=== PATIENT | male | born 1980 | race Caucasian/White ===

== ENCOUNTER 2016-09-05 12:25 | Emergency (ER) | payer OTHER ==
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
[2016-09-05 14:52] VITALS: BP 173/70; PULSE 63; RESP 16; TEMP 98.1
== END 2016-09-05 14:50 | disposition home or self-care (01) ==
LOC: EC 12:25
DX: S02.642B Fracture of ramus of left mandible, initial encounter for open fracture (principal); M54.2 Cervicalgia; H54.8 Legal blindness, as defined in USA; F20.9 Schizophrenia, unspecified; F41.9 Anxiety disorder, unspecified; F17.200 Nicotine dependence, unspecified, uncomplicated; Y04.0XXA Assault by unarmed brawl or fight, initial encounter; Y93.01 Activity, walking, marching and hiking
CPT/HCPCS: 70450; 70486; 72125; 99284

== ENCOUNTER 2017-10-27 20:26 | Emergency (ER) | payer OTHER ==
[2017-10-27 20:49] VITALS: BP 121/61; PULSE 73; RESP 16; TEMP 97.3
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
--- NOTE | 2017-10-27 21:38 | XR ---
PROCEDURE: XR mandible complete, 5V DATE AND TIME: 10/27/2017 9:24 PM REFERRING PHYSICIAN: Wang Harry CLINICAL INDICATION: PHH, Pain TECHNIQUE: Department protocol. COMPARISON: None FINDINGS: There is no fracture or malalignment. The bilateral mandibular molars are noted to have a horizontal lie. The soft tissues are unremarkable. IMPRESSION: NO DEFINITE ACUTE PROCESS, BUT BILATERAL MANDIBULAR MOLAR HORIZONTAL LIE NOTED.
== END 2017-10-27 22:03 | disposition home or self-care (01) ==
LOC: EC 20:26
DX: R68.84 Jaw pain (principal); R22.0 Localized swelling, mass and lump, head; H54.8 Legal blindness, as defined in USA; F20.9 Schizophrenia, unspecified; F17.200 Nicotine dependence, unspecified, uncomplicated; Z79.899 Other long term (current) drug therapy; Z87.81 Personal history of (healed) traumatic fracture
CPT/HCPCS: 70110; 99283

== ENCOUNTER 2018-02-24 18:20 | Inpatient (IN) | payer MEDICARE, MEDICAID ==
[2018-02-24] MEDS ORDERED: LIDOCAINE 1% INJ 10MG/ML (20 ML MDV) SQ ONE (18:58)
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
[2018-02-24 20:47] LABS: Amphetamine Screen,Urine Not Detected (NotDetected); Barbiturate Screen,Urine Not Detected (NotDetected); Benzodiazepines Screen,Urine Not Detected (NotDetected); Cocaine Screen,Urine Not Detected (NotDetected); Methadone Screen, Urine Not Detected (NotDetected); Opiate Screen,Urine Not Detected (NotDetected); Oxycodone Screen, Urine Not Detected (NotDetected); Phencyclidine Screen,Urine Not Detected (NotDetected); Tricyclic Antidepressant,Urine Not Detected (NotDetected); Urn Cannabinoid Scrn Not Detected (NotDetected)
[2018-02-24] MEDS ORDERED: ACETAMINOPHEN TAB 325 MG TAB PO PRN (23:23)
[2018-02-24] MEDS ORDERED: ZIPRASIDONE 20 MG VIAL IM PRN (23:23)
[2018-02-24] MEDS ORDERED: LORazepam 1 MG TAB PO PRN (23:23)
[2018-02-24] MEDS ORDERED: MAGNESIUM HYDROXIDE 2,400 MG/10 ML CUP PO PRN (23:23)
[2018-02-24] MEDS ORDERED: MAG HYDROX/AL HYDROX/SIMETH 30 ML CUP PO PRN (23:23)
[2018-02-24] MEDS ORDERED: LORazepam 2 MG/ML INJ IM PRN (23:27)
[2018-02-25 00:01] LABS: Appearance,Urine Clear (Clear); Bilirubin,Urine Negative (Negative); Blood,Urine Negative (Negative); Color,Urine Light Yellow; Glucose,Urine (UA) Negative (Negative); Ketones,Urine Negative (Negative); Leukocyte Esterase,Urine Negative (Negative); Nitrite,Urine Negative (Negative); Protein,Urine Negative (Negative); Urobilinogen,Urine <2.0 mg/dL (<2.0)
[2018-02-25] MEDS: OLANZapine 10 MG TAB PO SCH ×2 (00:10→20:29)
--- NOTE | 2018-02-25 07:07 | P.MDCNMH ---
History of Present Illness H&P Date: 02/25/18 Chief Complaint: Homicidal thoughts 37-year-old male with no significant past medical history except for schizophrenia presented to the hospital due to suicidal and homicidal ideation patient was threatening at his mental health clinic to draw people patient was very upset and was voicing urges to hurt other people until the day he also voiced urges to commit suicide. Currently upon interviewing the patient he refuses to talk about the above symptoms information was obtained by reviewing his medical records. But he currently denies any medical concerns he denies any chest pain or trouble breathing denies any coughing fevers or chills denies any abdominal pain Patient denies any use of alcohol, smoking, or drugs. However in his medical records there is mention in of occasional alcohol use Review of Systems Pertinent positives as noted in HPI. All other systems were reviewed and are negative Past Medical History Past Medical History: Eye Disorder, Hyperlipidemia Additional Past Medical History / Comment(s): lung disease, legally blind in right eye History of Any Multi-Drug Resistant Organisms: None Reported Past Surgical History: No Surgical Hx Reported Past Psychological History: Anxiety, Schizophrenia Smoking Status: Current every day smoker Past Alcohol Use History: Occasional Past Drug Use History: Cocaine, Marijuana Medications and Allergies Home Medications Medication Instructions Recorded Confirmed Type OLANZapine [ZyPREXA] 20 mg PO HS 11/18/14 02/24/18 History Albuterol Sulfate [Proair 1 - 2 puff PO RT-Q6H PRN 02/24/18 02/24/18 History Respiclick] Citalopram Hydrobromide [CeleXA] 40 mg PO DAILY 02/24/18 02/24/18 History Allergies Allergy/AdvReac Type Severity Reaction Status Date / Time No Known Allergies Allergy Verified 02/24/18 19:04 Physical Exam Vitals: Vital Signs Temp Pulse Pulse Resp BP BP Pulse Ox 02/25/18 00:11 97.5 F L 84 16 114/69 100 02/24/18 23:55 97.0 F L 82 16 145/69 100 02/24/18 18:37 97.5 F L 96 18 145/64 98 Intake and Output 02/24/18 02/25/18 02/25/18 22:59 06:59 14:59 Other: Weight 74.389 kg 71.532 kg Constitutional: No acute distress, conversant, pleasant Eyes: Anicteric sclerae, moist conjunctiva, no lid-lag Pupils equal round reactive to light ENMT: NC/AT Oropharynx clear, no erythema, or exudates Neck: Supple, FROM, no masses, or JVD No carotid bruits No thyromegaly Lungs: Clear to auscultation Clear to percussion Normal respiratory effort, no accessory muscle use Cardiovascular: Heart regular in rate and rhythm, No murmurs, gallops, or rubs No peripheral edema Abdominal: Soft Nontender, no guarding, rebound or rigidity Abdomen moving with respiration Normoactive bowel sounds No hepatomegaly, No splenomegaly No palpable mass No abdominal wall hernia noted Skin: Normal temperature, tone, texture, turgor No induration No subcutaneous nodules No rash, lesions No ulcers Extremities: No digital cyanosis No clubbing Pedal pulses intact and symmetrical Radial pulses intact and symmetrical No calf tenderness Psychiatric: Alert and oriented to person, place and time Anxious, paranoid Poor judgment Neuro Muscles Strength 5/5 in all 4 extremities Sensation to light touch grossly present throughout Cranial nerves II-XII grossly intact No focal sensory deficits Lymphatics: no palpable cervical or supraclavicular , or inguinal lymph nodes Cranial Nerve Examination - Cranial Nerves Cranial Nerve II- Optic: Intact Cranial Nerve III- Oculomotor: Intact Cranial Nerve IV- Trochlear: Intact Cranial Nerve V- Trigeminal: Intact Cranial Nerve - Abducens: Intact Cranial Nerve VII- Facial: Intact Cranial Nerve VIII- Auditory: Intact Cranial Nerve IX- Glossopharyngeal: Intact Cranial Nerve X- Vagus: Intact Cranial Nerve XI- Accessory: Intact Cranial Nerve XII- Hypoglossal: Intact Assessment and Plan Plan: 37-year-old male with history of schizophrenia presented to the hospital due to homicidal and suicidal ideation medicine was consulted for medical management. Schizophrenia Homicidal and suicidal ideation Suicide precautions Management per psych DVT prophylaxis patient is low risk and ambulatory Thank you for allowing us to participate in the care of this patient. We will follow peripherally. Do not hesitate to contact us with questions. Someone can be reached from the [facility] hospitalist group at all hours of the day at [phone].
[2018-02-25] MEDS: CITALOPRAM HYDROBROMIDE 20 MG TAB PO SCH (07:51)
[2018-02-25 09:57] LABS: ALT 21 U/L (21-72); AST 19 U/L (17-59); Albumin 3.8 g/dL (3.5-5.0); Alkaline Phosphatase 84 U/L (38-126); Anion Gap 8 mmol/L; Blood Urea Nitrogen 11 mg/dL (9-20); Calcium 9.4 mg/dL (8.4-10.2); Carbon Dioxide 26 mmol/L (22-30); Chloride 107 mmol/L (98-107); Cholesterol 213 mg/dL (<200); Glucose 88 mg/dL (74-99); HDL Cholesterol 49 mg/dL (40-60); LDL Cholesterol,Calculated 135 mg/dL (0-99); Potassium 4.5 mmol/L (3.5-5.1); Sodium 141 mmol/L (137-145); Total Bilirubin 0.7 mg/dL (0.2-1.3); Total Protein 6.5 g/dL (6.3-8.2); Triglycerides 146 mg/dL (<150)
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
[2018-02-25 20:15] LABS: Hemoglobin A1C 4.8 % (4.0-6.0)
[2018-02-26] MEDS: CITALOPRAM HYDROBROMIDE 20 MG TAB PO SCH (07:33)
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
[2018-02-26] MEDS: OLANZapine 10 MG TAB PO SCH (20:29)
[2018-02-26] MEDS: ALBUTEROL NEBULIZED 2.5 MG/3 ML INHALATION PRN (21:14)
[2018-02-27] MEDS: CITALOPRAM HYDROBROMIDE 20 MG TAB PO SCH (08:05)
--- NOTE | 2018-02-27 12:26 | P.PN ---
Subjective Progress Note Date: 02/27/18 Principal diagnosis: Schizophrenia undifferentiated Chief Complaint: I am having a mental breakdown] History of Present Illness: [V mental health patient with a history of schizophrenia] Interval history: He is more able to communicate but still depressed and anxious. Very ambivalent. Initial Comments: 37-year-old male patient presents to the emergency department today with suicidal and homicidal ideation. Patient reports that he was on the phone with his psychiatrist and was being asked multiple yes and no questions. Patient stated that they asked the same question "50 times" and made him very angry. Patient states that at that time he started to become very upset and had urges to "punch someone over and over until they ". Patient states he has also been having frequent thoughts of jumping off the bridge into the river and killing himself. Patient stated that if he had to stay and Pray any longer that he would kill himself. He also said that now he only wants to live to maim other humans. When asked where he would go if he wasn't Pray and he said the only option as a "casket". Patient made statements such as "I will cut my throat with a knife" and "I should just cut my balls off and flush them down the toilet, because I don't need those anymore". Patient has a very angry affect throughout history and physical and seems anxious. Patient does report that he had an argument with his girlfriend today and did smash his phone and caused laceration to his right hand. He denies any other injuries. He does admit to drinking 2-22oz beers today. Denies any drug use. States he has been taking his medications as directed. Patient states he is discharged from here he will kill himself, he believes he should be locked in in a "mental hospital" for the rest of his life. Patient denies any headache, neck pain, back pain, chest pain, shortness of breath, dizziness, weakness, abdominal pain, nausea, vomiting, or difficulties with bowel movements or urination. Past Medical History Past Medical History: Eye Disorder, Hyperlipidemia Additional Past Medical History / Comment(s): lung disease, legally blind in right eye History of Any Multi-Drug Resistant Organisms: None Reported Past Surgical History: No Surgical Hx Reported Past Psychological History: Anxiety, Schizophrenia Smoking Status: Current every day smoker Past Alcohol Use History: Occasional Past Drug Use History: Cocaine, Marijuana Musculoskeletal Examination - Abnormal/Involuntary Movements: [none] Strength: [greater than antigravity (greater than/equal to 3/5) in all extremities, weakness:] Muscle Tone: [no impairment] Gait: [grossly normal] Station: [grossly normal] Mental Status Examination - General Appearance: [bizarre, appears stated age, ] Speech/Language: [ rambled, mumbling, hesitant, halting, monotone] Attitude/Behavior: [guarded, irritable, withdrawn, indifferent] Mood: [ depressed 6/10, anxious 5/10, irritable] Affect: [flat, incongruent, blunted constricted] Orientation: [Not time, person, place situation] Thought Content: [wnl Risk Factors: [suicidal (ideations Perception: [hallucinations (auditory today none heard Thought Processes: [concrete, circumstantial, tangential, other] Concentration/Attention Span: [ impaired] [Per observation and interview with the patient] Recent Memory: [ impaired] [1 out of 3 in 3 minutes] Remote Memory: [wnl] [past events, as related history] Intelligence: [below average] [based on history, based on vocabulary, syntax, grammar, and content] Judgement: [fair] [per patient's behavior/history of present illness] Insight: [ fair] [understanding severity of illness/history of present illness] Admitting Diagnosis: [Schizophrenia undifferentiated] Patient Strengths - Housing stability: [x] Able to vocalize needs: [I'm having a mental breakdown and need help] Motivation, determination, readiness for change: [I want to feel better] Patient Limitations: [medication, non-compliance, pathological/unsupported environment, no interests, intellectual impairment, complicated medical illness , legal issues, lack of social supports, other] Initial Plan of Care: [Started on mood stabilizers (Zyprexa 20 mg po qhs)and antidepressants (celexa)integrated jensen milieu therapeutic environment with integration with nursing staff, medical evaluation and daily meetings] Estimated Length of Stay: [4 days] Outpatient follow up with [facility] psychiatrist and ACT team; PCP follow up. Objective - Vital Signs Vital signs: Vital Signs Temp 97.9 F 02/27/18 06:53 Pulse 71 02/27/18 06:53 Resp 18 02/27/18 06:53 BP 108/58 02/27/18 06:53 Pulse Ox 96 02/27/18 06:53 - Labs CBC & Chem 7: 02/25/18 09:19 Assessment and Plan (1) Schizo-affective psychosis Current Visit: Yes Status: Acute Priority: Medium Code(s): F25.9 - SCHIZOAFFECTIVE DISORDER, UNSPECIFIED SNOMED Code(s): 02304241 (2) Suicidal ideation Current Visit: Yes Status: Acute Priority: Medium Code(s): R45.851 - SUICIDAL IDEATIONS SNOMED Code(s): 9245777 Plan: Chief Complaint: I am having a mental breakdown] History of Present Illness: [ mental health patient with a history of schizophrenia] Initial Comments: 37-year-old male patient presents to the emergency department today with suicidal and homicidal ideation. Patient reports that he was on the phone with his psychiatrist and was being asked multiple yes and no questions. Patient stated that they asked the same question "50 times" and made him very angry. Patient states that at that time he started to become very upset and had urges to "punch someone over and over until they ". Patient states he has also been having frequent thoughts of jumping off the bridge into the river and killing himself. Patient stated that if he had to stay and Pray any longer that he would kill himself. He also said that now he only wants to live to maim other humans. When asked where he would go if he wasn't Pray and he said the only option as a "casket". Patient made statements such as "I will cut my throat with a knife" and "I should just cut my balls off and flush them down the toilet, because I don't need those anymore". Patient has a very angry affect throughout history and physical and seems anxious. Patient does report that he had an argument with his girlfriend today and did smash his phone and caused laceration to his right hand. He denies any other injuries. He does admit to drinking 2-22oz beers today. Denies any drug use. States he has been taking his medications as directed. Patient states he is discharged from here he will kill himself, he believes he should be locked in in a "mental hospital" for the rest of his life. Patient denies any headache, neck pain, back pain, chest pain, shortness of breath, dizziness, weakness, abdominal pain, nausea, vomiting, or difficulties with bowel movements or urination. Past Medical History Past Medical History: Eye Disorder, Hyperlipidemia Additional Past Medical History / Comment(s): lung disease, legally blind in right eye History of Any Multi-Drug Resistant Organisms: None Reported Past Surgical History: No Surgical Hx Reported Past Psychological History: Anxiety, Schizophrenia Smoking Status: Current every day smoker Past Alcohol Use History: Occasional Past Drug Use History: Cocaine, Marijuana Musculoskeletal Examination - Abnormal/Involuntary Movements: [none] Strength: [greater than antigravity (greater than/equal to 3/5) in all extremities, weakness:] Muscle Tone: [no impairment] Gait: [grossly normal] Station: [grossly normal] Mental Status Examination - General Appearance: [disheveled, bizarre, appears stated age, ] Speech/Language: [ slow, rambled, mumbling, hesitant, halting, monotone] Attitude/Behavior: [guarded, irritable, withdrawn, indifferent] Mood: [ depressed, anxious, irritable, angry, fearful, hopelessness] Affect: [flat, incongruent, labile, blunted constricted] Orientation: [Not time, person, place situation] Thought Content: [wnl Risk Factors: [suicidal (ideations, plan), and/or Homicidal (ideations, plan)] Perception: [hallucinations (auditory, Thought Processes: [concrete, circumstantial, tangential, other] Concentration/Attention Span: [ impaired] [Per observation and interview with the patient] Recent Memory: [ impaired] [0 out of 3 in 3 minutes] Remote Memory: [wnl] [past events, as related history] Intelligence: [below average] [based on history, based on vocabulary, syntax, grammar, and content] Judgement: [poor] [per patient's behavior/history of present illness] Insight: [ poor] [understanding severity of illness/history of present illness] Admitting Diagnosis: [Schizophrenia undifferentiated] Patient Strengths - Housing stability: [x] Able to vocalize needs: [I'm having a mental breakdown and need help] Motivation, determination, readiness for change: [I want to feel better] Other: [] Patient Limitations: [medication, non-compliance, pathological/unsupported environment, no interests, intellectual impairment, complicated medical illness , legal issues, lack of social supports, other] Initial Plan of Care: [] Estimated Length of Stay: [] Initial Discharge Plan: [home, [place] [facility], referred to therapist, ] Prognosis: [good, fair, guarded] Justification for Inpatient Hospitalization - [Hallucinations, delusions, agitation, anxiety, depression resulting in significant loss of functioning.] [Dangerous to self, others, or property with need for controlled environment.] [Emotional or behavioral conditions and complications requiring 24 hour medical and nursing care.] [Need for special drug therapy, or other therapeutic program requiring continuous hospitalization.] [Failure of social or occupational functioning.] [Inability to meet basic life and health needs.] [Legally mandated admission.] [Patient's occupation presents danger to public safety if they continue to use drugs or alcohol.] [Biomedical conditions and complications requiring 24 hour medical and nursing care.] Time with Patient: Less than 30
[2018-02-27] MEDS: OLANZapine 10 MG TAB PO SCH (20:52)
[2018-02-28] MEDS: CITALOPRAM HYDROBROMIDE 20 MG TAB PO SCH (08:51)
--- NOTE | 2018-02-28 16:12 | P.PN ---
Progress Note - Text Progress Note Date: 02/28/18 IDENTIFICATION DATA: 37-year-old male patient with history of schizophrenia admitted due to impulsivity, poor insight/judgement, illogical thought process, suicidal, homicidal ideation after having had an argument with his girlfriend . INTERVAL HISTORY: Behavioral problems Patient stated he became upset and frustrated while completing questionnaires on a pod for his out patient appointments. He stated he did not answer his girlfriends phone call during the process of completing his questionnaire. He reports his day got ruined and he got into an argument with his girlfriend. He reports to have broke the phone given to him by his girlfriend. He reports to have injured his hand when he broke the phone. He showed the sutures that were placed on his right palm. He currently reports feeling calm. He reports feeling safe to go back home. He claims he is missing his work. 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 He claims his girl friend is very supportive of him. He reports to have cut down on his alcohol use ever since he met his new girlfriend a year ago. Mood disorder: He denies current symptoms of depression. He reports good sleep and appetite. He attends all his groups,. He is complaint with all his prescribed medications. No side effects reported. He denies current suicidal or homicidal ideations. Denies mood swings OR RACING THOUGHTS Psychosis He denies auditory or visual hallucinations. He denies paranoia. MENTAL STATUS EXAMINATION: 37- year-old male. He appeared his stated age in fair grooming and hygiene. He is dressed casually. No abnormal movements noted. The patient is alert and oriented 4 and in no apparent distress. His speech and thought process are linear and goal . Mood is reported as good and affect is APPROPRIATE. Denies suicidal or homicidal ideation. Denies auditory or visual hallucaintions. Not delusional. insight and judgment are improving. ASSESSMENT AND PLAN: Continue current medications Continue all precuations Monitor for symptoms
[2018-02-28] MEDS: OLANZapine 10 MG TAB PO SCH (20:56)
[2018-03-01] MEDS: CITALOPRAM HYDROBROMIDE 20 MG TAB PO SCH (08:16)
--- NOTE | 2018-03-01 16:05 | P.PN ---
Progress Note - Text Progress Note Date: 03/01/18 IDENTIFICATION DATA : 37-year-old male patient with history of schizophrenia admitted due to impulsivity, poor insight/judgement, illogical thought process, suicidal, homicidal ideation after having had an argument with his girlfriend . INTERVAL HISTORY: Patient was sleeping in his room. States he is little tired today. He claims to have slept well yesterday. He reports good appetite. He denies feeling hopeless or worthless. He reports to have talked to his girl friend over the phone and says both of them are in good terms now. He feels safe to back home. He reports being compliant with his prescribed medications. No side effects reported. No behavioral problems reported. MENTAL STATUS EXAMINATION: The patient is alert and oriented 4 and in no apparent distress. he appears in marginal grooming and hygiene.. Mood is "tired" and affect is constricted. Denies auditory and visual hallucinations. thought processes is linear and goal directed. thought content is negative for suicidal or homicidal ideation. insight and judgment are limited. ASSESSMENT AND PLAN: Continue current medications Continue precuations Monitor for symptoms
[2018-03-01] MEDS: OLANZapine 10 MG TAB PO SCH (20:16)
[2018-03-01] MEDS: ALBUTEROL NEBULIZED 2.5 MG/3 ML INHALATION PRN (21:15)
[2018-03-02] MEDS: CITALOPRAM HYDROBROMIDE 20 MG TAB PO SCH (07:58)
--- NOTE | 2018-03-02 12:56 | P.PN ---
Subjective Progress Note Date: 03/02/18 Principal diagnosis: Schizophrenia undifferentiated Chief Complaint: I was having a mental breakdown which is getting better] History of Present Illness: [mental health patient with a history of schizophrenia] Interval history: He is more able to communicate but still depressed and anxious. Very ambivalent but wants to stop being impulsive Initial Comments: 37-year-old male patient presents to the emergency department today with suicidal and homicidal ideation. Patient reports that he was on the phone with his psychiatrist and was being asked multiple yes and no questions. Patient stated that they asked the same question "50 times" and made him very angry. Patient states that at that time he started to become very upset and had urges to "punch someone over and over until they ". Patient states he has also been having frequent thoughts of jumping off the bridge into the river and killing himself. Patient stated that if he had to stay and [facility] any longer that he would kill himself. He also said that now he only wants to live to maim other humans. When asked where he would go if he wasn't [facility] and he said the only option as a "casket". Patient made statements such as "I will cut my throat with a knife" and "I should just cut my balls off and flush them down the toilet, because I don't need those anymore". Patient has a very angry affect throughout history and physical and seems anxious. Patient does report that he had an argument with his girlfriend today and did smash his phone and caused laceration to his right hand. He denies any other injuries. He does admit to drinking 2-22oz beers today. Denies any drug use. States he has been taking his medications as directed. Patient states he is discharged from here he will kill himself, he believes he should be locked in in a "mental hospital" for the rest of his life. Patient denies any headache, neck pain, back pain, chest pain, shortness of breath, dizziness, weakness, abdominal pain, nausea, vomiting, or difficulties with bowel movements or urination. Past Medical History Past Medical History: Eye Disorder, Hyperlipidemia Additional Past Medical History / Comment(s): lung disease, legally blind in right eye History of Any Multi-Drug Resistant Organisms: None Reported Past Surgical History: No Surgical Hx Reported Past Psychological History: Anxiety, Schizophrenia Smoking Status: Current every day smoker Past Alcohol Use History: Occasional Past Drug Use History: Cocaine, Marijuana Mental Status Examination - General Appearance: [bizarre, appears stated age, ] Speech/Language: [ rambled, mumbling, hesitant, halting, monotone] Attitude/Behavior: [guarded, irritable, withdrawn, indifferent] Mood: [ depressed 6/10, anxious 5/10, irritable] Affect: [flat, incongruent, blunted constricted] Orientation: [Not time, person, place situation] Thought Content: [wnl Risk Factors: [suicidal (ideations have decreased Perception: [hallucinations (none auditory today none heard Thought Processes: [concrete, circumstantial, tangential, other] Concentration/Attention Span: [ impaired] [Per observation and interview with the patient] Recent Memory: [ impaired] [2 out of 3 in 3 minutes] Remote Memory: [wnl] [past events, as related history] Intelligence: [below average] [based on history, based on vocabulary, syntax, grammar, and content] Judgement: [fair] [per patient's behavior/history of present illness] Insight: [ fair] [understanding severity of illness/history of present illness] Admitting Diagnosis: [Schizophrenia undifferentiated] Patient Strengths - Housing stability: [x] Able to vocalize needs: [I'm having a mental breakdown and need help] Motivation, determination, readiness for change: [I want to feel better] Patient Limitations: [medication, non-compliance, pathological/unsupported environment, no interests, intellectual impairment, complicated medical illness , legal issues, lack of social supports, other] Initial Plan of Care: [Started on mood stabilizers (Zyprexa 20 mg po qhs)and antidepressants (celexa)integrated j[facility] milieu therapeutic environment with integration with nursing staff, medical evaluation and daily meetings add Revia 50 mg for alcohol and tobacco use Estimated Length of Stay: [1 days] Outpatient follow up with [facility] psychiatrist and ACT team; PCP follow up. Objective - Vital Signs Vital signs: Vital Signs Temp 98.1 F 03/02/18 06:53 Pulse 50 L 03/02/18 06:53 Resp 14 03/02/18 06:53 BP 117/57 03/02/18 06:53 Pulse Ox 96 02/27/18 06:53 - Labs CBC & Chem 7: 02/25/18 09:19 Assessment and Plan (1) Schizo-affective psychosis Current Visit: Yes Status: Acute Priority: Medium Code(s): F25.9 - SCHIZOAFFECTIVE DISORDER, UNSPECIFIED SNOMED Code(s): 49058863 (2) Suicidal ideation Current Visit: Yes Status: Acute Priority: Medium Code(s): R45.851 - SUICIDAL IDEATIONS SNOMED Code(s): 6041236
[2018-03-02] MEDS ORDERED: NALTREXONE HCL 50 MG TAB PO SCH (20:00)
[2018-03-02] MEDS: OLANZapine 10 MG TAB PO SCH (20:17)
[2018-03-03 06:51] VITALS: BP 114/58; PULSE 53; RESP 16; TEMP 97.6
[2018-03-03] MEDS: CITALOPRAM HYDROBROMIDE 20 MG TAB PO SCH (08:32)
--- NOTE | 2018-03-03 10:18 | P.DS ---
Providers Date of admission: 02/24/18 23:05 Expected date of discharge: 03/03/18 Attending physician: Montez Teague DO Consults: 02/24/18 23:23 Consult Physician Routine Consulting Provider: Arash Physician Consult Reason/Comments: H&P for mental health admission Do you want consulting provider notified?: Yes Primary care physician: [facility] - Discharge Diagnosis(es) (1) Schizo-affective psychosis Current Visit: Yes Status: Acute Priority: Low (2) Suicidal ideation Current Visit: Yes Status: Acute Priority: Low Hospital Course: Chief Complaint: I am having a mental breakdown] History of Present Illness: mcc chronic mental illness of thought Past Medical History Past Medical History: Eye Disorder, Hyperlipidemia Additional Past Medical History / Comment(s): lung disease, legally blind in right eye History of Any Multi-Drug Resistant Organisms: None Reported Past Surgical History: No Surgical Hx Reported Past Psychological History: Anxiety, Schizophrenia Smoking Status: Current every day smoker Past Alcohol Use History: Occasional Past Drug Use History: Cocaine, Marijuana Mental Status Examination - General Appearance: [ appears stated age, ] Speech/Language: [ slow,spontaneous] Attitude/Behavior: [guarded Mood: [ Less depressed reactive affect] Affect: [Reactive and insightful Orientation: time, person, place situation] Thought Content: [wnl Risk Factors: [No suicidal homicidal ideation today Perception: [No hallucinations (auditory, Thought Processes: [, circumstantial, tangential, other] Concentration/Attention Span: [intact [Per observation and interview with the patient] Recent Memory: [ intact [3 out of 3 in 3 minutes] Remote Memory: [wnl] [past events, as related history] Intelligence: [below average] [based on history, based on vocabulary, syntax, grammar, and content] Judgement: [fair] [per patient's behavior/history of present illness] Insight: [fair] [understanding severity of illness/history of present illness] Plan of Care: [Started on mood stabilizers (Zyprexa 20 mg po qhs)and antidepressants (celexa)integrated j[facility] milieu therapeutic environment with integration with nursing staff, medical evaluation and daily meetings add Revia 50 mg for alcohol and tobacco use Patient Condition at Discharge: Stable Plan - Discharge Summary Discharge Rx Participant: Yes New Discharge Prescriptions: New Naltrexone HCl [Revia] 50 mg PO Q24H 30 Days #30 tab OLANZapine [ZyPREXA] 20 mg PO HS 30 Days #60 tab Continue Albuterol Sulfate [Proair Respiclick] 1 - 2 puff PO RT-Q6H PRN PRN Reason: Shortness Of Breath Citalopram Hydrobromide [CeleXA] 40 mg PO DAILY 30 Days #30 tablet Discontinued OLANZapine [ZyPREXA] 20 mg PO HS Discharge Medication List Albuterol Sulfate [Proair Respiclick] 1 - 2 puff PO RT-Q6H PRN 02/24/18 [History ] Citalopram Hydrobromide [CeleXA] 40 mg PO DAILY 30 Days #30 tablet 03/03/18 [Rx] Naltrexone HCl [Revia] 50 mg PO Q24H 30 Days #30 tab 03/03/18 [Rx] OLANZapine [ZyPREXA] 20 mg PO HS 30 Days #60 tab 03/03/18 [Rx] Follow up Appointment(s)/Referral(s): [facility] [Primary Care Provider] - 1-2 days Discharge Disposition: HOME SELF-CARE
== END 2018-03-03 12:19 | disposition home or self-care (01) | DRG 885 ==
LOC: EC 18:20 → 3MHU 23:05
PROVIDERS: ADMIT Psychiatry & Neurology Psychiatry; ATTEND Psychiatry & Neurology Psychiatry
DX: F20.3 Undifferentiated schizophrenia (principal); R45.851 Suicidal ideations; E78.5 Hyperlipidemia, unspecified; F17.200 Nicotine dependence, unspecified, uncomplicated; F39 Unspecified mood [affective] disorder; F41.9 Anxiety disorder, unspecified; H54.8 Legal blindness, as defined in USA; R45.850 Homicidal ideations; S61.411A Laceration without foreign body of right hand, initial encounter; Z91.19 Patient's noncompliance with other medical treatment and regimen; F79 Unspecified intellectual disabilities; J44.9 Chronic obstructive pulmonary disease, unspecified
CPT/HCPCS: 12001; 80053; 80061; 80306; 81003; 82075; 83036; 84443; 94640; 99285

== ENCOUNTER 2018-06-12 13:43 | Emergency (ER) | payer MEDICARE, OTHER ==
[2018-06-12 13:48] VITALS: RESP 20; TEMP 98
--- NOTE | 2018-06-12 14:23 | ED ---
General Adult HPI - General Chief complaint: Wound/Laceration Stated complaint: Lac on rt hand Source: patient, RN notes reviewed Mode of arrival: ambulatory Limitations: no limitations - History of Present Illness Initial comments: Patient is a 38-year-old male who presents emergency department with complaint of right palm laceration that happened last night around 9 PM. He reports he cut his hand on a broken bowl. He reports that he is up to date on his tetanus vaccination. Patient denies any recent fever, chills, shortness of breath, chest pain, back pain, abdominal pain, nausea or vomiting, numbness or tingling , headaches or visual changes, or any other complaints. - Related Data Home Medications Medication Instructions Recorded Confirmed Albuterol Sulfate [Proair 1 - 2 puff PO RT-Q6H PRN 02/24/18 02/24/18 Respiclick] Previous Rx's Medication Instructions Recorded Citalopram Hydrobromide [CeleXA] 40 mg PO DAILY 30 Days #30 tablet 03/03/18 Naltrexone HCl [Revia] 50 mg PO Q24H 30 Days #30 tab 03/03/18 OLANZapine [ZyPREXA] 20 mg PO HS 30 Days #60 tab 03/03/18 Bacitracin Oint 1 applic TOPICAL TID 7 Days #1 tube 06/12/18 Allergies Allergy/AdvReac Type Severity Reaction Status Date / Time No Known Allergies Allergy Verified 06/12/18 13:48 Review of Systems ROS Statement: Those systems with pertinent positive or pertinent negative responses have been documented in the HPI. ROS Other: All systems not noted in ROS Statement are negative. Past Medical History Past Medical History: Eye Disorder, Hyperlipidemia Additional Past Medical History / Comment(s): lung disease, legally blind in right eye History of Any Multi-Drug Resistant Organisms: None Reported Past Surgical History: No Surgical Hx Reported Past Psychological History: Anxiety, Schizophrenia Smoking Status: Current every day smoker Past Alcohol Use History: Occasional Past Drug Use History: Cocaine, Marijuana General Exam Limitations: no limitations General appearance: alert, in no apparent distress Head exam: Present: atraumatic, normocephalic Respiratory exam: Present: normal lung sounds bilaterally Cardiovascular Exam: Present: regular rate, normal heart sounds Extremities exam: Present: full ROM, normal capillary refill, other (Right palm with 3 cm laceration. Able to maintain finger extension against resistance.) Neurological exam: Present: alert, oriented X3 Psychiatric exam: Present: normal affect, normal mood Skin exam: Present: warm, dry Course Vital Signs 06/12/18 06/12/18 13:46 14:41 Temperature 98 F Pulse Rate 105 H 65 Respiratory 20 20 Rate Blood Pressure 115/69 109/54 O2 Sat by Pulse 99 96 Oximetry Medical Decision Making - Medical Decision Making The wound has been open for 17 hours. It will not be sutured. It was cleaned here and Bacitracin applied; no bleeding. Will prescribe Bacitracin. Case discussed in detail with attending physician Dr. Orona. Disposition Clinical Impression: Laceration Disposition: HOME SELF-CARE Condition: Good Instructions: Laceration (ED) Additional Instructions: Follow-up with your PCP in 1 to 2 days. Please use antibiotic ointment as prescribed. Return to the emergency department if any redness, swelling, drainage, or fevers as these could indicate an infection. Return to the emergency department for any other concerns. Prescriptions: Bacitracin Oint 1 applic TOPICAL TID 7 Days #1 tube Is patient prescribed a controlled substance at d/c from ED?: No Referrals: [facility] [Primary Care Provider] - 1-2 days Time of Disposition: 15:13
[2018-06-12 14:42] VITALS: BP 109/54; PULSE 65
== END 2018-06-12 15:19 | disposition home or self-care (01) ==
LOC: EC 13:43
DX: S61.411A Laceration without foreign body of right hand, initial encounter (principal); F17.200 Nicotine dependence, unspecified, uncomplicated; W26.8XXA Contact with other sharp object(s), not elsewhere classified, initial encounter
CPT/HCPCS: 99282

== ENCOUNTER → 2018-07-31 | Outpatient (CLI) | payer MEDICARE, OTHER ==
--- NOTE | 2018-07-31 12:55 | CT ---
EXAMINATION TYPE: CT sinus wo con DATE OF EXAM: 07/31/2018 COMPARISON: None HISTORY: Sinus problems x years. CT DLP: 663 mGycm. Automated Exposure Control for Dose Reduction was Utilized. TECHNIQUE: CT scan of the sinuses is performed without contrast, axial images are obtained, coronal r eformatted images are also reviewed. FINDINGS: Frontal sinus and sphenoid sinuses have a normal appearance. There is moderate mucosal thickening involving the ethmoid air cells and mild mucosal thickening invo lving the maxillary sinuses.. The ostiomeatal complex is occluded bilaterally. There is a large conc eisenberg bullosa on the left. Nasal septal deviation noted. Intraorbital and intracranial structures are symmetric. Visualized nasopharynx and oropharynx symmetr ic. Visualized portion of mastoid air cells show no abnormal opacification. The globes are intact bi laterally. IMPRESSION: 1. Findings compatible with chronic sinusitis with most marked findings involving the ethmoid air camila ls greater on the left. There is bilateral occlusion of the ostiomeatal complex..
== END | disposition home or self-care (01) ==
LOC: RADCTMAIN 12:11
PROVIDERS: ATTEND Otolaryngology
DX: J32.9 Chronic sinusitis, unspecified (principal); J34.89 Other specified disorders of nose and nasal sinuses
CPT/HCPCS: 70486

== ENCOUNTER 2018-10-07 07:43 | Day surgery (SDC) | payer MEDICARE, OTHER ==
[~2018-10-07 07:43] MED LIST: FAMOTIDINE 20 MG/2 ML VIAL IV ONE; Pre Op ABX Message 1 EACH MISC MISCELLANE ONE
[2018-10-07] MEDS ORDERED: LIDOCAINE 1% 20 ML VIAL (10MG/ML) FOR IV START INTRADERMA PRN (08:18)
[2018-10-07] MEDS ORDERED: ONDANSETRON 4 MG/2 ML VIAL IVP PRN (08:18)
[2018-10-07] MEDS ORDERED: HYDROmorphone 0.5 MG/0.5 ML SYRINGE IVP PRN (08:18)
[2018-10-07] MEDS ORDERED: LACTATED RINGERS 1,000 ML IV SCH (08:18)
[2018-10-07] MEDS ORDERED: KETOROLAC 30 MG/ML 1 ML VIAL IVP SCH (08:18)
[2018-10-07] MEDS ORDERED: ONDANSETRON IVPB ONE (08:30)
[2018-10-07] MEDS ORDERED: SODIUM CHLORIDE 0.9% IVPB ONE (08:30)
[2018-10-07] MEDS: OXYMETAZOLINE 0.05% NASL SPRAY 1 SPRAY BOTTLE NASAL ONE ×5 (08:30→08:55)
[2018-10-07] MEDS ORDERED: DEXAMETHASONE SOD PHOSPHATE 20 MG in DEXTROSE 5% IN WATER 50 ML IV ONE ×2 (08:30)
[2018-10-07] MEDS ORDERED: ONDANSETRON 8 MG in SODIUM CHLORIDE 0.9% 50 ML IVPB ONE (08:30)
[2018-10-07] MEDS ORDERED: LACTATED RINGERS 1,000 ML IV ONE (08:35)
[2018-10-07] MEDS ORDERED: DEXAMETHASONE SOD PHOSPHATE 10 MG/ML 1 ML VIAL IV ONE (08:47)
[2018-10-07] MEDS ORDERED: LIDOCAINE 1% INJ 10MG/ML (20 ML MDV) ONE (09:39)
[2018-10-07] MEDS ORDERED: PROPOFOL 10 MG/ML 20 ML VIAL IV ONE (09:39)
[2018-10-07] MEDS ORDERED: SUCCINYLCHOLINE CHLORIDE 100 MG/5 ML SYR IV ONE (09:39)
[2018-10-07] MEDS ORDERED: fentaNYL (PF) 50 MCG/ML 2 ML AMP ONE (09:39)
[2018-10-07] MEDS ORDERED: DEXAMETHASONE SOD PHOS (MDV) 100 MG/10 ML VIAL ONE (09:39)
[2018-10-07] MEDS ORDERED: MIDAZOLAM 2 MG/2 ML VIAL ONE (09:39)
[2018-10-07] MEDS ORDERED: LIDOCAINE 1%-EPI 1:100,000 20 ML VIAL SUBMUCOSAL ONE ×2 (09:57)
[2018-10-07] MEDS ORDERED: BACITRACIN 500 UNIT/GM OINT 28.4 GM TUBE TOPICAL ONE ×2 (10:08→10:27)
[2018-10-07 11:17] VITALS: TEMP 97
[2018-10-07 11:18] VITALS: RESP 16
[2018-10-07] MEDS ORDERED: HYDROcodone/APAP 7.5-325MG 1 EACH TAB PO ONE (12:04)
[2018-10-07 12:29] VITALS: BP 129/76; PULSE 84
--- NOTE | 2018-10-13 05:47 | OP ---
OPERATIVE REPORT DATE OF SURGERY: 10/07/2018. PREOPERATIVE DIAGNOSES: 1. Deviated nasal septum. 2. Inferior turbinate hypertrophy. 3. Chronic sinusitis. POSTOPERATIVE DIAGNOSES: 1. Deviated nasal septum. 2. Inferior turbinate hypertrophy. 3. Chronic sinusitis. PROCEDURE: 1. Septoplasty. 2. Outfracture and submucous resection of the inferior turbinates. 3. Bilateral endoscopic sinus surgery including bilateral maxillary antrostomy with removal of tissue from maxillary sinus, bilateral carlton bullectomy, bilateral anterior and posterior ethmoidectomy. ANESTHESIA: General. ESTIMATED BLOOD LOSS: Minimal, less than 10 mL. COMPLICATIONS: None. INDICATIONS: This is a 38-year-old white male with chronic nasal airway obstruction and congestion as well as recurrent sinusitis with CT findings of chronic sinusitis. FINDINGS: Nasal septum deviated to the right. Inferior turbinates hypertrophy bilaterally. Maxillary ostia were obstructed bilaterally. There were bilateral carlton bullosa cells and the ethmoid sinuses had diffuse mild edema and polypoid change throughout. DESCRIPTION OF PROCEDURE: The patient brought up to the operative suite and placed supine position. Patient underwent general anesthesia with oral endotracheal intubation without difficulty. The patient was prepped and draped in usual aseptic fashion. in the operating field for monitoring throughout the case and CT scan was on the computer screen for review throughout the case also. One percent lidocaine with 1:100,000 epinephrine was infused submucosally into the bilateral nasal septal wall as well as lateral nasal wall and anterior tips of middle turbinates bilaterally. While this was taking the vasoconstrictive effect, the inferior turbinates were infractured with a Boies elevator. Partial submucous resection of inferior turbinates was performed using Coblation wand, ablating a portion of the submucosal soft tissue and then the inferior turbinates were outfractured with a Ivydale elevator. A left hemitransfixion incision was made and the mucoperichondrial mucoperiosteal flap in the left elevated. Bony cartilaginous junction was disarticulated. A mucoperiosteal flap on the right was elevated. Bony nasal septal deformities were removed with Aleah forceps. The inferior cartilaginous strip was removed removed leaving a full 1.5 cm caudal strut. Checking intranasally this corrected the nasal septal deformity and the hemitransfixion incision was closed with a running 4-0 chromic suture. A full zero degree endoscopic examination performed bilaterally. Beginning on the left, the lateral 1/2 of the middle turbinate was removed with microdebrider thus performing the carlton bullectomy. The maxillary ostium was with a ballpoint probe and infundibulotomy was performed followed by uncinectomy. The maxillary ostium was at the anterior and posterior fontanelle taking care anteriorly not to injure the lacrimal bone. The maxillary sinus had small polyps that were removed with the giraffe forceps and curved suctioning. Anterior posterior ethmoidectomy was then performed from anterior posterior level of the skull base with the anterior ethmoid air cells cleaned from posterior anterior. Nasofrontal duct was noted to be patent. Proceeding on the right, the procedure was followed as they had been on the left including carlton bullectomy, infundibulotomy, uncinectomy maxillary antrostomy with removal of tissue in maxillary sinus, anterior to posterior ethmoidectomy. Once this was completed, a combination of standard and firm NasoPore nasal dressings were closed placed in the middle under direct visualization. Bilateral Ocasio airway splints coated with bacitracin ointment were placed in nasal cavities and sutured transseptally with 4-0 nylon suture. The patient was suctioned in orogastric fashion and was allowed to emerge from general anesthesia having tolerated procedure well, was extubated in the operating suite and transferred to postoperative recovery area in satisfactory condition. MMODL / IJN: [id number] /
== END 2018-10-07 12:46 | disposition home or self-care (01) ==
LOC: OR 07:43
PROVIDERS: ATTEND Otolaryngology
DX: J32.8 Other chronic sinusitis (principal); J34.2 Deviated nasal septum; J34.3 Hypertrophy of nasal turbinates; F32.9 Major depressive disorder, single episode, unspecified; F17.210 Nicotine dependence, cigarettes, uncomplicated; F41.9 Anxiety disorder, unspecified; Z79.899 Other long term (current) drug therapy
CPT/HCPCS: 88305; 88300; 30520; 30140; 31267; 31255; 31240; J2250; J1100 ×2; J2405; J0690; J2001; J3010; J0330; J2704

== ENCOUNTER 2019-02-10 12:19 | Emergency (ER) | payer MEDICARE, OTHER ==
[2019-02-10 12:41] VITALS: RESP 18
--- NOTE | 2019-02-10 13:17 | ED ---
General Adult HPI - General Source: patient, RN notes reviewed Mode of arrival: ambulatory Limitations: no limitations <Sanjay Luna - Last Filed: 02/10/19 17:10> <Sanjay Gutierrez - Last Filed: 02/10/19 18:32> - General Chief complaint: Psychiatric Symptoms Stated complaint: Anxiety, Mental Health Time Seen by Provider: 02/10/19 12:40 - History of Present Illness Initial comments: This is a 38-year-old male who presents emergency Department stating that he has not had any of his schizophrenic medications for 4 months. Patient states more recently he is becoming much more agitated and anxious and is feeling that he needs his medications filled. Patient states he didn't get them filled last time because he missed an appointment. Patient states he feels that his mind is more cloudy than it normally is. Patient denies any suicidal or homicidal ideations. Patient denies any hallucinations. Patient denies any auditory hallucinations. Patient states he does not believe anyone is after him and has no thoughts of anyone trying to harm him. Patient denies any physical complaints today. (Sanjay Luna) - Related Data Home Medications Medication Instructions Recorded Confirmed Cholecalciferol [Vitamin D3 (25 5,000 unit PO DAILY 02/10/19 02/10/19 Mcg = 1000 Iu)] Naltrexone HCl [Revia] 50 mg PO QAM 02/10/19 02/10/19 Previous Rx's Medication Instructions Recorded Citalopram Hydrobromide [CeleXA] 40 mg PO DAILY 30 Days #30 tablet 03/03/18 OLANZapine [ZyPREXA] 20 mg PO HS 30 Days #60 tab 03/03/18 Allergies Allergy/AdvReac Type Severity Reaction Status Date / Time No Known Allergies Allergy Verified 02/10/19 12:56 Review of Systems ROS Other: All systems not noted in ROS Statement are negative. <Sanjay Luna - Last Filed: 02/10/19 17:10> ROS Other: All systems not noted in ROS Statement are negative. <Sanjay Gutierrez - Last Filed: 02/10/19 18:32> ROS Statement: Those systems with pertinent positive or pertinent negative responses have been documented in the HPI. Past Medical History Past Medical History: Eye Disorder, Hyperlipidemia Additional Past Medical History / Comment(s): lung disease, legally blind in right eye History of Any Multi-Drug Resistant Organisms: None Reported Past Surgical History: No Surgical Hx Reported Past Psychological History: Anxiety, Schizophrenia Smoking Status: Current every day smoker Past Alcohol Use History: Occasional Past Drug Use History: Cocaine, Marijuana <Sanjay Luna - Last Filed: 02/10/19 17:10> General Exam Limitations: no limitations <Sanjay Luna - Last Filed: 02/10/19 17:10> - General Exam Comments Initial Comments: GENERAL: Patient is well-developed and well-nourished. Patient is nontoxic and well- hydrated and is in no acute distress. ENT: Neck is soft and supple. No significant lymphadenopathy is noted. Neck has full range of motion without eliciting any pain. EYES: The sclera were anicteric and conjunctiva were pink and moist. Extraocular movements were intact and pupils were equal round and reactive to light. Eyelids were unremarkable. PULMONARY: Unlabored respirations. Good breath sounds bilaterally. No audible rales rhonchi or wheezing was noted. CARDIOVASCULAR: There is a regular rate and rhythm without any murmurs gallops or rubs. ABDOMEN: Soft and nontender with normal bowel sounds. No palpable organomegaly was noted. There is no palpable pulsatile mass. SKIN: Skin is clear with no lesions or rashes and otherwise unremarkable. NEUROLOGIC: Patient is alert and oriented x3. Cranial nerves II through XII are grossly intact. Motor and sensory are also intact. Normal speech, volume and content. Symmetrical smile. MUSCULOSKELETAL: Normal extremities with adequate strength and full range of motion. No lower extremity swelling or edema. No calf tenderness. LYMPHATICS: No significant lymphadenopathy is noted PSYCHIATRIC: Patient denies any suicidal or homicidal ideations. Patient does seem mildly anxious. (Sanjay Luna) Course Vital Signs 02/10/19 02/10/19 12:38 18:13 Temperature 97.9 F 97.8 F Pulse Rate 89 54 L Respiratory 18 18 Rate Blood Pressure 120/74 123/71 O2 Sat by Pulse 98 97 Oximetry EKG Findings - EKG Comments: EKG Findings:: EKG shows sinus bradycardia rate of 58, DC 136, QRS 70, QTc 424 <Sanjay Gutierrez - Last Filed: 02/10/19 18:32> Medical Decision Making <Sanjay Luna - Last Filed: 02/10/19 17:10> <Sanjay Gutierrez - Last Filed: 02/10/19 18:32> - Medical Decision Making Dr. Gutierrez will be taking over the care of this patient at 5 PM (Sanjay Luna) 38 male who was seen and evaluated with psychiatry in the ER not currently homicidal or suicidal patient can be discharged home (Sanjay Gutierrez) Disposition <Sanjay Luna - Last Filed: 02/10/19 17:10> Is patient prescribed a controlled substance at d/c from ED?: No <Sanjay Gutierrez - Last Filed: 02/10/19 18:32> Clinical Impression: Schizo-affective psychosis Disposition: HOME SELF-CARE Condition: Fair Instructions (If sedation given, give patient instructions): Schizoaffective Disorder (ED) Referrals: [facility] [Primary Care Provider] - 1-2 days
[2019-02-10 18:14] VITALS: BP 123/71; PULSE 54; TEMP 97.8
== END 2019-02-10 19:01 | disposition home or self-care (01) ==
LOC: EC 12:19
DX: F25.9 Schizoaffective disorder, unspecified (principal); F41.9 Anxiety disorder, unspecified; F17.200 Nicotine dependence, unspecified, uncomplicated; Z79.899 Other long term (current) drug therapy
CPT/HCPCS: 82075; 93005; 99284

== ENCOUNTER 2019-05-01 12:08 | Emergency (ER) | payer MEDICARE, OTHER ==
[2019-05-01 12:19] VITALS: BP 111/86; PULSE 107; RESP 20; TEMP 98.1
[2019-05-01] MEDS ORDERED: LIDOCAINE 1% INJ 10MG/ML (20 ML MDV) SQ ONE (12:34)
--- NOTE | 2019-05-01 12:56 | ED ---
Wound/Laceration HPI - General Chief Complaint: Wound/Laceration Stated Complaint: Finger Lacerations Time Seen by Provider: 05/01/19 12:16 Source: patient Mode of arrival: ambulatory - History of Present Illness Initial Comments: Patient is a 39-year-old male presenting to the emergency Department with complaints of a laceration on his right thumb and left little finger. Patient states this happened approximately 11 PM last night. Patient states he was carrying a beer bottle when he slipped on wet floor and the bottle broke. Patient states he had a tetanus vaccine last year. Bleeding is controlled at this time. Patient denies being on blood thinners. Patient denies any other injuries from his fall. Patient has no other complaints at this time. Upon arrival to the ER, vital signs are stable. - Related Data Home Medications Medication Instructions Recorded Confirmed Cholecalciferol [Vitamin D3 (25 5,000 unit PO DAILY 02/10/19 02/10/19 Mcg = 1000 Iu)] Naltrexone HCl [Revia] 50 mg PO QAM 02/10/19 02/10/19 Previous Rx's Medication Instructions Recorded Citalopram Hydrobromide [CeleXA] 40 mg PO DAILY 30 Days #30 tablet 03/03/18 OLANZapine [ZyPREXA] 20 mg PO HS 30 Days #60 tab 03/03/18 OLANZapine [ZyPREXA] 5 mg PO HS #5 tablet 02/10/19 Allergies Allergy/AdvReac Type Severity Reaction Status Date / Time No Known Allergies Allergy Verified 02/10/19 12:56 Review of Systems ROS Statement: Those systems with pertinent positive or pertinent negative responses have been documented in the HPI. ROS Other: All systems not noted in ROS Statement are negative. Past Medical History Past Medical History: Eye Disorder, Hyperlipidemia Additional Past Medical History / Comment(s): lung disease, legally blind in [facility] eye History of Any Multi-Drug Resistant Organisms: None Reported Past Surgical History: No Surgical Hx Reported Past Psychological History: Anxiety, Schizophrenia Smoking Status: Current every day smoker Past Alcohol Use History: Occasional Past Drug Use History: Cocaine, Marijuana General Exam - General Exam Comments Initial Comments: GENERAL: Well-appearing, well-nourished and in no acute distress. HEAD: Atraumatic, normocephalic. EYES: Pupils equal round and reactive to light, extraocular movements intact, sclera anicteric, conjunctiva are normal. ENT: Moist mucous membranes. NECK: Normal range of motion, supple without lymphadenopathy or JVD. LUNGS: Breath sounds clear to auscultation bilaterally and equal. No wheezes rales or rhonchi. HEART: Regular rate and rhythm without murmurs, rubs or gallops. EXTREMITIES: Patient has full normal range of motion of bilateral fingers. NEUROLOGICAL: Normal speech, normal gait. PSYCH: Normal mood, normal affect. SKIN: Warm, Dry, normal turgor, no rashes. Patient has a 1 cm laceration of the right thumb, no nail involvement. Patient also has a 1 cm laceration of the left pinky finger, no nail involvement. There is no active bleeding at this time. Course Vital Signs 05/01/19 12:16 Temperature 98.1 F Pulse Rate 107 H Respiratory 20 Rate Blood Pressure 111/86 O2 Sat by Pulse 97 Oximetry Procedures - Laceration Laceration #1 Consent Obtained: verbal consent Indication: laceration Site: other (Right thumb) Size (cm): 1 Description: linear Depth: simple, single layer Anesthetic Used: lidocaine 1% Anesthesia Technique: local infiltration Amount (mls): 2 Pre-repair: irrigated extensively Type of Sutures: nylon Size of Sutures: 4-0 Number of Sutures: 3 Technique: simple, interrupted Patient Tolerated Procedure: well Laceration #2 Consent Obtained: verbal consent Indication: laceration Site: other (Left pinky finger) Size (cm): 1 Description: linear Depth: simple, single layer Anesthetic Used: lidocaine 1% Anesthesia Technique: local infiltration Amount (mls): 2 Pre-repair: irrigated extensively Type of Sutures: nylon Size of Sutures: 4-0 Number of Sutures: 2 Technique: simple, interrupted Patient Tolerated Procedure: well Medical Decision Making - Medical Decision Making Patient is a 39-year-old male presenting with a 1 cm laceration of the right thumb and a 171 laceration of the left pinky finger. Patient's tetanus vaccine is up-to-date. Both wounds were irrigated and closed with 40 sutures. There was a total of 5 sutures placed. Patient tolerated procedure well. Patient will have sutures removed in 7-10 days. Patient will keep wounds covered while working. Patient is stable for discharge at this time. He is in agreement with this plan of care. Disposition Clinical Impression: Laceration of right thumb, Laceration of left little finger Disposition: HOME SELF-CARE Condition: Stable Instructions (If sedation given, give patient instructions): Care For Your Stitches (ED), Laceration (ED) Additional Instructions: Please return to the Emergency Department if symptoms worsen or any other concerns. Stitches need to be removed in 7-10 days. Keep wounds covered while working. Is patient prescribed a controlled substance at d/c from ED?: No Referrals: [facility] [Primary Care Provider] - 1-2 days
== END 2019-05-01 12:59 | disposition home or self-care (01) ==
LOC: EC 12:08
DX: S61.011A Laceration without foreign body of right thumb without damage to nail, initial encounter (principal); S61.217A Laceration without foreign body of left little finger without damage to nail, initial encounter; H54.8 Legal blindness, as defined in USA; F17.200 Nicotine dependence, unspecified, uncomplicated; Z79.899 Other long term (current) drug therapy; W01.0XXA Fall on same level from slipping, tripping and stumbling without subsequent striking against object, initial encounter; W26.8XXA Contact with other sharp object(s), not elsewhere classified, initial encounter; Y93.89 Activity, other specified
CPT/HCPCS: 99282; 12001; J2001

== ENCOUNTER 2019-06-27 19:03 | Emergency (ER) | payer MEDICARE, OTHER ==
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
[2019-06-27] MEDS ORDERED: MORPHINE SULFATE 2 MG/ML SYRINGE IVP STA (20:51)
[2019-06-27] MEDS ORDERED: ONDANSETRON 4 MG/2 ML VIAL IVP STA (20:51)
[2019-06-27] MEDS ORDERED: CLINDAMYCIN 600 MG in DEXTROSE 5% IN WATER 50 ML IVPB ONE ×2 (21:00)
[2019-06-27 21:28] LABS: Basophils # (A) 0.1 k/uL (0-0.2); Basophils % (A) 1 %; Eosinophils # (A) 0.1 k/uL (0-0.7); Eosinophils % (A) 1 %; HCT 48.9 % (39.0-53.0); HGB 16.1 gm/dL (13.0-17.5); Lymphocytes # (A) 1.5 k/uL (1.0-4.8); Lymphocytes % (A) 15 %; MCHC 32.9 g/dL (31.0-37.0); MCV 94.2 fL (80.0-100.0); Mean Platelet Volume 7.8; Monocytes # (A) 0.4 k/uL (0-1.0); Monocytes % (A) 4 %; Neutrophils # (A) 7.9 k/uL (1.3-7.7); Neutrophils % (A) 79 %; Platelet Count 230 k/uL (150-450); RBC 5.19 m/uL (4.30-5.90); RDW 12.4 % (11.5-15.5)
[2019-06-27 21:37] LABS: INR 0.9 (<1.2); Partial Thromboplastin Time 22.5 sec (22.0-30.0); Prothrombin Time 9.8 sec (9.0-12.0)
[2019-06-27 21:43] LABS: ALT 11 U/L (4-49); AST 23 U/L (17-59); African American GFR (CKD) >90 (>60 ml/min/1.73 sqM); Albumin 3.8 g/dL (3.5-5.0); Alkaline Phosphatase 76 U/L (38-126); Anion Gap 7 mmol/L; Blood Urea Nitrogen 6 mg/dL (9-20); Calcium 8.5 mg/dL (8.4-10.2); Carbon Dioxide 26 mmol/L (22-30); Chloride 111 mmol/L (98-107); Glucose 97 mg/dL (74-99); Non-African American GFR(CKD) >90 (>60 ml/min/1.73 sqM); Sodium 144 mmol/L (137-145); Total Bilirubin 0.3 mg/dL (0.2-1.3); Total Protein 6.2 g/dL (6.3-8.2)
[2019-06-27 21:53] LABS: Alcohol 187 mg/dL
[2019-06-28 02:42] VITALS: RESP 18
[2019-06-28 02:45] VITALS: BP 113/68; PULSE 83; TEMP 97.8
== END 2019-06-27 21:35 | disposition other institution (70) ==
LOC: EC 19:03
DX: S02.40FA Zygomatic fracture, left side, initial encounter for closed fracture (principal); S02.69XA Fracture of mandible of other specified site, initial encounter for closed fracture; S02.32XA Fracture of orbital floor, left side, initial encounter for closed fracture; T74.11XA Adult physical abuse, confirmed, initial encounter; H54.61 Unqualified visual loss, right eye, normal vision left eye; F17.200 Nicotine dependence, unspecified, uncomplicated; Y04.0XXA Assault by unarmed brawl or fight, initial encounter; Y92.009 Unspecified place in unspecified non-institutional (private) residence as the place of occurrence of the external cause; Y07.59 Other non-family member, perpetrator of maltreatment and neglect
CPT/HCPCS: 36415; 80053; 85025; 85610; 85730; 72125; 70486; 70450; 99285; 96365; 96375 ×2; L0120; G0480; J2405; J2270; 80320

== ENCOUNTER 2020-08-19 17:52 | Emergency (ER) | payer MEDICARE, OTHER ==
[2020-08-19 17:57] VITALS: TEMP 97.8
--- NOTE | 2020-08-19 17:58 | ED ---
General Adult HPI - General Chief complaint: Fall Stated complaint: fall/ankle injury Time Seen by Provider: 08/19/20 17:53 Source: patient, EMS Mode of arrival: EMS Limitations: no limitations - History of Present Illness Initial comments: Patient presents the ED by ambulance for evaluation status post fall. Patient states that he has had 5 "deucers" to drink today, and he seems very intoxicated on presentation to the ED. Patient states that he accidentally tripped and fell down about 5 stairs, injuring his right ankle. Patient has an obvious deformity noted to his right ankle on arrival to the ED. Patient denies any other injury or site of pain. Patient denies illicit drug use. Patient denies head injury, headache, LOC, neck/back/upper extremity pain, hip pain, chest pain, dyspnea, dizziness, abdominal pain, nausea/vomiting, or any other symptoms or complaints. Upon triage questioning, the patient did tell ED nurse that he was having suicidal ideations. - Related Data Home Medications Medication Instructions Recorded Confirmed Cholecalciferol [Vitamin D3 (25 5,000 unit PO DAILY 02/10/19 02/10/19 Mcg = 1000 Iu)] Naltrexone HCl [Revia] 50 mg PO QAM 02/10/19 02/10/19 Previous Rx's Medication Instructions Recorded Citalopram Hydrobromide [CeleXA] 40 mg PO DAILY 30 Days #30 tablet 03/03/18 OLANZapine [ZyPREXA] 20 mg PO HS 30 Days #60 tab 03/03/18 OLANZapine [ZyPREXA] 5 mg PO HS #5 tablet 02/10/19 Allergies Allergy/AdvReac Type Severity Reaction Status Date / Time No Known Allergies Allergy Verified 02/10/19 12:56 Review of Systems ROS Statement: Those systems with pertinent positive or pertinent negative responses have been documented in the HPI. ROS Other: All systems not noted in ROS Statement are negative. Past Medical History Past Medical History: COPD, Eye Disorder, Hyperlipidemia Additional Past Medical History / Comment(s): lung disease, legally blind in right eye History of Any Multi-Drug Resistant Organisms: None Reported Past Surgical History: No Surgical Hx Reported Past Psychological History: Anxiety, Schizophrenia Smoking Status: Current every day smoker Past Alcohol Use History: Occasional Past Drug Use History: Cocaine, Marijuana General Exam Limitations: no limitations General appearance: alert, in no apparent distress, appears intoxicated, other (Patient smells of alcohol) Head exam: Present: atraumatic, normocephalic Eye exam: Present: PERRL, EOMI ENT exam: Present: mucous membranes moist Neck exam: Present: normal inspection, other (Trachea is in midline). Absent: tenderness Respiratory exam: Present: normal lung sounds bilaterally. Absent: respiratory distress, wheezes, rales, rhonchi, stridor, chest wall tenderness Cardiovascular Exam: Present: regular rate, normal rhythm, normal heart sounds, other (Normal radial pulses bilaterally) GI/Abdominal exam: Present: soft. Absent: distended, tenderness, guarding Extremities exam: Present: other (Pelvis is stable and nontender; obvious right ankle deformity is noted on examination without any open wounds; patient has a strong right dorsalis pedis pulse) Back exam: Present: normal inspection. Absent: tenderness Neurological exam: Present: alert, oriented X3, CN II-XII intact. Absent: motor sensory deficit Psychiatric exam: Present: other (Intoxicated) Skin exam: Present: warm, dry, intact, normal color Course Vital Signs 08/19/20 08/19/20 17:53 19:10 Temperature 97.8 F Pulse Rate 67 92 Respiratory 18 18 Rate Blood Pressure 117/79 131/83 O2 Sat by Pulse 98 98 Oximetry - Reevaluation(s) Reevaluation #1: 08/19/20 20:08 Case, H&P and imaging findings were discussed with orthopedic surgery REBEKAH Soria. He has viewed the patient's films himself, and he recommends transferring the patient to [facility]. He has no further rec ommendations at this time. 08/19/20 20:12 Case, H&P, test results, imaging findings and my discussion with REBEKAH Soria as above were discussed with Dr. Acosta (orthopedic surgery at [facility]). He accepts ambulance transfer to the [facility] ED, and he states that he will notify the ED physician himself. He has no further recommendations at this time. 08/19/20 20:16 Patient denies development of any new pain or symptoms while in the ED. Patient remains alert and breathing comfortably. Patient is aware of his test results and my discussions as above. Patient agrees with plan to transfer him to [facility] at this time. Procedures - Orthopedic Fracture Reduction Fracture #1 Consent Obtained: verbal consent Side: right Fracture Reduction Location: tibia, fibula Analgesia: other (Dilaudid 1mg IV) Technique: direct manipulation Post Reduction X-rays Demonstrate: acceptable reduction Post-Reduction Neuro Exam: intact Post-Reduction Vascular Exam: intact Splint Applied: Yes (sugar tong and stirrup) Patient Tolerated Procedure: well, no complications - Orthopedic Splinting/Casting Injury #1 Side: right Lower Extremity Injury Location: ankle Lower Extremity Immobilizer: posterior splint, stirrup splint Medical Decision Making - Medical Decision Making Patient has a trimalleolar right ankle fracture, which was reduced and splinted myself in the ED. Orthopedic surgery was consulted, and they have recommended transferring the patient to [facility]. Transfer was accepted by Dr. Acosta (orthopedic surgeon at [facility]). - Lab Data Result diagrams: 08/19/20 19:10 08/19/20 19:10 Lab Results 08/19/20 08/19/20 Range/Units 19:10 19:10 WBC 15.3 H (3.8-10.6) k/uL RBC 5.06 (4.30-5.90) m/uL Hgb 16.1 (13.0-17.5) gm/dL Hct 48.3 (39.0-53.0) % MCV 95.6 (80.0-100.0) fL MCH 31.8 (25.0-35.0) pg MCHC 33.3 (31.0-37.0) g/dL RDW 13.0 (11.5-15.5) % Plt Count 267 (150-450) k/uL MPV 7.3 Neutrophils % 78 % Lymphocytes % 16 % Monocytes % 4 % Eosinophils % 1 % Basophils % 0 % Neutrophils # 11.9 H (1.3-7.7) k/uL Lymphocytes # 2.4 (1.0-4.8) k/uL Monocytes # 0.6 (0-1.0) k/uL Eosinophils # 0.2 (0-0.7) k/uL Basophils # 0.1 (0-0.2) k/uL Sodium 136 L (137-145) mmol/L Potassium 4.2 (3.5-5.1) mmol/L Chloride 99 (98-107) mmol/L Carbon Dioxide 25 (22-30) mmol/L Anion Gap 12 mmol/L BUN 10 (9-20) mg/dL Creatinine 0.91 (0.66-1.25) mg/dL Est GFR (CKD-EPI)AfAm >90 (>60 ml/min/1.73 sqM) Est GFR (CKD-EPI)NonAf >90 (>60 ml/min/1.73 sqM) Glucose 100 H (74-99) mg/dL Calcium 9.3 (8.4-10.2) mg/dL Total Bilirubin 0.4 (0.2-1.3) mg/dL AST 38 (17-59) U/L ALT 61 H (4-49) U/L Alkaline Phosphatase 104 (38-126) U/L Total Protein 7.4 (6.3-8.2) g/dL Albumin 4.6 (3.5-5.0) g/dL Serum Alcohol 254 H* mg/dL - Radiology Data Radiology results: report reviewed (Right ankle x-rays: Comminuted lateral trimalleolar fracture dislocation of the right ankle; noncontrast CT head and cervical spine: No fracture of the cervical spine, negative CT scan of the brain; post-reduction right ankle x-rays: There is satisfactory reduction compared to initial exam), image reviewed (Chest and pelvis x-rays are negative) Disposition Clinical Impression: Fall, Alcohol intoxication, Suicidal ideations, Trimalleolar fracture of right ankle Disposition: OTHER INSTITUTION NOT DEFINED Condition: Stable Is patient prescribed a controlled substance at d/c from ED?: No Referrals: [facility] [Primary Care Provider] - 1-2 days Time of Disposition: 20:14 - Out of Hospital Transfer - Req. Specs Out of Hospital Transfer - Requested Specifics: Other Emergency Center ([facility])
[2020-08-19] MEDS ORDERED: HYDROmorphone 1 MG/ML 1 ML SYRINGE IVP STA (18:00)
[2020-08-19] MEDS ORDERED: SODIUM CHLORIDE 0.9% 1,000 ML IV ONE (18:00)
--- NOTE | 2020-08-19 19:04 | XR ---
EXAMINATION TYPE: XR pelvis AP view DATE OF EXAM: 08/19/2020 COMPARISON: NONE HISTORY: Fall. Pain. TECHNIQUE: Single view FINDINGS: Pelvic ring is intact. Proximal femurs and hip joints are intact. IMPRESSION: Normal pelvis.
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
--- NOTE | 2020-08-19 19:06 | XR ---
EXAMINATION TYPE: XR ankle limited RT DATE OF EXAM: 08/19/2020 COMPARISON: NONE HISTORY: Pain TECHNIQUE: 2 views FINDINGS: There is comminuted fracture at the ankle with trimalleolar fracture fragments involving th e lateral and medial malleolus and also posterior malleolus. There is a lateral dislocation of the ta oscar. IMPRESSION: Comminuted lateral trimalleolar fracture dislocation of the right ankle.
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
[2020-08-19 19:37] LABS: Basophils # (A) 0.1 k/uL (0-0.2); Basophils % (A) 0 %; Eosinophils # (A) 0.2 k/uL (0-0.7); Eosinophils % (A) 1 %; HCT 48.3 % (39.0-53.0); HGB 16.1 gm/dL (13.0-17.5); Lymphocytes # (A) 2.4 k/uL (1.0-4.8); Lymphocytes % (A) 16 %; MCH 31.8 pg (25.0-35.0); MCHC 33.3 g/dL (31.0-37.0); MCV 95.6 fL (80.0-100.0); Mean Platelet Volume 7.3; Monocytes # (A) 0.6 k/uL (0-1.0); Monocytes % (A) 4 %; Neutrophils # (A) 11.9 k/uL (1.3-7.7); Neutrophils % (A) 78 %; Platelet Count 267 k/uL (150-450); RBC 5.06 m/uL (4.30-5.90); WBC 15.3 k/uL (3.8-10.6)
[2020-08-19 19:48] LABS: ALT 61 U/L (4-49); AST 38 U/L (17-59); African American GFR (CKD) >90 (>60 ml/min/1.73 sqM); Albumin 4.6 g/dL (3.5-5.0); Alkaline Phosphatase 104 U/L (38-126); Anion Gap 12 mmol/L; Blood Urea Nitrogen 10 mg/dL (9-20); Calcium 9.3 mg/dL (8.4-10.2); Carbon Dioxide 25 mmol/L (22-30); Chloride 99 mmol/L (98-107); Glucose 100 mg/dL (74-99); Non-African American GFR(CKD) >90 (>60 ml/min/1.73 sqM); Potassium 4.2 mmol/L (3.5-5.1); Sodium 136 mmol/L (137-145); Total Bilirubin 0.4 mg/dL (0.2-1.3); Total Protein 7.4 g/dL (6.3-8.2)
--- NOTE | 2020-08-19 19:53 | XR ---
EXAMINATION TYPE: XR ankle complete RT DATE OF EXAM: 08/19/2020 COMPARISON: Today HISTORY: Post reduction TECHNIQUE: 3 views. There is trimalleolar fracture of the ankle. There is anatomic reduction of the dislocated talus. Fra gments are in good position. IMPRESSION: There is satisfactory reduction compared to initial exam.
[2020-08-19 19:59] LABS: Alcohol 254 mg/dL
[2020-08-19 20:38] VITALS: BP 130/89; PULSE 88; RESP 16
== END 2020-08-19 21:37 | disposition other institution (70) ==
LOC: EC 17:52
DX: S82.851A Displaced trimalleolar fracture of right lower leg, initial encounter for closed fracture (principal); F10.129 Alcohol abuse with intoxication, unspecified; R45.851 Suicidal ideations; H54.61 Unqualified visual loss, right eye, normal vision left eye; F17.200 Nicotine dependence, unspecified, uncomplicated; Z79.899 Other long term (current) drug therapy; W10.9XXA Fall (on) (from) unspecified stairs and steps, initial encounter
CPT/HCPCS: 36415; 80053; 85025; 72170; 73600; 73610; 71045; 72125; 70450; 99285; 27818; 96360; 96361; G0480; J1170; 80320